=== PATIENT | female | born 1955 | race Two or more races ===

== ENCOUNTER 2017-10-31 18:37 | Emergency (ER) | payer MEDICAID, OTHER ==
[~2017-10-31] VITALS: Ht 154.9 cm; Wt 65.8 kg
[2017-10-31 18:58] VITALS: BP 150/69
[2017-10-31] MEDS ORDERED: KETOROLAC TROMETH 60MG/2ML VIAL IM ONE (20:00)
[2017-10-31] MEDS ORDERED: HYDROcodone-ACET 5/325MG TAB PO ONE (20:00)
== END 2017-10-31 20:17 | disposition home or self-care (01) ==
LOC: ER 18:37
DX: M54.42 Lumbago with sciatica, left side (principal); M54.41 Lumbago with sciatica, right side; R11.2 Nausea with vomiting, unspecified; G89.29 Other chronic pain; E11.9 Type 2 diabetes mellitus without complications; E78.5 Hyperlipidemia, unspecified; Z90.710 Acquired absence of both cervix and uterus
CPT/HCPCS: 96372; 99283; J1885

== ENCOUNTER 2018-05-01 22:08 | Emergency (ER) | payer MEDICAID ==
[~2018-05-01] VITALS: Ht 154.9 cm; Wt 67.6 kg
[2018-05-01 22:24] VITALS: BP 146/72
== END 2018-05-01 22:44 | disposition left against medical advice (07) ==
LOC: ER 22:08
DX: R21 Rash and other nonspecific skin eruption (principal); Z53.21 Procedure and treatment not carried out due to patient leaving prior to being seen by health care provider